=== PATIENT | female | born 1980 | race Two or more races ===

== ENCOUNTER 2024-02-29 10:46 | Emergency (ER) | payer OTHER, SELFPAY ==
[2024-02-29 10:49] VITALS: BP 122/85
[2024-02-29] MEDS: BENADRYL 25 MG IV (12:16)
[2024-02-29] MEDS: NSS 1000 IV (12:16)
[2024-02-29] MEDS: TORADOL 30 MG IV (12:17)
[2024-02-29] MEDS: DECADRON 10 MG IV (12:17)
[2024-02-29] MEDS: REGLAN 10 MG IV (12:17)
[2024-02-29 12:29] LABS: % Basophils 0.5 % (0-2); % Eosinophils 0.9 % (0-6); % Immature Granulocytes 0.4 % (0-0.5); % Lymphocytes 25.2 % (20.5-51.1); % Monocytes 6.7 % (1.7-9.3); % Neutrophils 66.3 % (42.2-75.2); Absolute Basophils 0.1 10^3/uL (0-0.2); Absolute Eosinophils 0.1 10^3/uL (0-0.7); Absolute Lymphocytes 2.8 10^3/uL (1.2-3.4); Absolute Monocytes 0.8 10^3/uL (0.1-0.6); Absolute Neutrophils 7.4 10^3/uL (1.4-6.5); Hematocrit 38.4 % (37.0-47.0); Hemoglobin 12.6 g/dL (12.0-16.0); Mean Corp Hgb Conc. 32.8 g/dL (33.0-37.0); Mean Corpuscular Hgb 26.4 pg (27.0-31.0); Mean Corpuscular Volume 80.3 fL (81.0-99.0); Mean Platelet Volume 10.3 fL (7.4-10.4); Nucleated Red Blood Cells % 0 %; Platelet Count 335 10^3/uL (130-400); Red Blood Cell Count 4.78 10^6/uL (4.20-5.40); Red Cell Dist. Width 12.5 % (11.5-14.5); White Blood Cell Count 11.2 10^3/uL (4.8-10.8)
[2024-02-29 12:36] LABS: HCG, Serum Qualitative Screen Negative
[2024-02-29 12:39] LABS: Blood Urea Nitrogen 8 mg/dl (7-17); Calcium 9.6 mg/dl (8.4-10.2); Carbon Dioxide 31 mmol/L (22-30); Chloride 106 mmol/L (98-107); Glucose 98 mg/dl (70-99); Potassium 4.5 mmol/L (3.5-5.1); Sodium 140 mmol/L (135-145); eGFR > 60.00
--- NOTE | 2024-02-29 13:19 | ED.GENMED ---
History of Present Illness
General
Chief Complaint: Headache
Source: patient
Exam Limitations: none
Time Seen by Provider: 02/29/24 11:32
Nursing documentation reviewed up to this point in time: agreed with
Travel History
Have you had any contact with someone who has COVID-19?: No
Do you have any symptoms of coronavirus? Fever > 100 degrees, chills, cough, shortness of breath, sore throat, loss of taste or smell, muscle aches, or headache?: No
History of Present Illness
History of Present Illness:
33-year-old female with past medical history of migraines presenting to the emergency department today with concerns of migraine ongoing over the past couple days has been going through a lot of stress and thinks this may have triggered it. Has
been taking her sumatriptan without relief. Denies any chest pain shortness of breath nausea vomiting numbness weakness.
Review of Systems
Review of Systems
Allergies reviewed?: Yes
All Other Systems: ROS reviewed and negative except as documented in HPI and ROS
Phy Exam
Physical Exam
Physical Exam:
GENERAL: Alert , in no apparent distress
EYE: pupils equal and reactive
NECK: Supple, no significant adenopathy.
ENT: o/p clr, mmm.
CARDIAC: Regular rate and rhythm .
LUNGS: Clear breath sounds bilaterally, no acute respiratory distress, no wheezes/rales/rhonchi
ABDOMEN: Soft, without focal tenderness, no r/g, no cvat
NEUROLOGICAL: Alert and oriented, no focal neuro deficits 5-5 upper and lower extremity strength normal sensation with palpating bilaterally normal finger-nose and emsw-we-[id number] no pronator drift
SKIN: Warm and dry, skin intact.
MUSCULOSKELETAL: No edema, well perfused.
PSYCH: Normal and appropriate interaction.
Course
Orders/Labs/Results
Orders:
Orders
02/29/24 11:56
0.9% Sodium Chloride 1000 ml [Nss] 1,000 ml IV BOLUS
Dexamethasone Sod Phosphate [Decadron] 10 mg IV NOW STA
Diphenhydramine [Benadryl] 25 mg IV NOW STA
Ketorolac [Toradol] 30 mg IV NOW STA
Metoclopramide [Reglan] 10 mg IV NOW STA
Test Result ONCE
02/29/24 12:16
BMP [Basic Metabolic Panel] Urgent
Beta Hcg Serum Qualitative Screen [HCG, Serum Qualitative Screen] Urgent
CBC/With Diff [Complete Blood Count/With Diff] Urgent
Abnormal Lab Results
02/29/24
12:16
WBC 11.2 H 10^3/uL
(4.8-10.8)
MCV 80.3 L fL
(81.0-99.0)
MCH 26.4 L pg
(27.0-31.0)
MCHC 32.8 L g/dL
(33.0-37.0)
Absolute Neuts (auto) 7.4 H 10^3/uL
(1.4-6.5)
Absolute Monos (auto) 0.8 H 10^3/uL
(0.1-0.6)
Carbon Dioxide 31 H mmol/L
(22-30)
02/29/24 12:16
02/29/24 12:16
Vital Signs
Initial and Last Documented VS:
Initial Vital Signs
Temp Pulse Resp BP Pulse Ox
98.3 F 84 18 122/85 100
02/29/24 10:49 02/29/24 10:49 02/29/24 10:49 02/29/24 10:49 02/29/24 10:49
Last Documented Vital Signs
Temp Pulse Resp BP Pulse Ox
98.3 F 84 18 122/85 100
02/29/24 10:49 02/29/24 10:49 02/29/24 10:49 02/29/24 10:49 02/29/24 10:49
MDM/Problems Addressed
MDM/Problems Addressed:
43-year-old female presenting to the emergency department today with concerns of headache consistent with her migraines. No neurologic symptoms no red flag symptoms. Patient was given a migraine cocktail with full resolution of symptoms.
Otherwise stable for outpatient management return precautions given.
*Critical Care Note
Total Time (30-74mins, 75-104mins- exclusive of procedures): Not Applicable
ED Attending Note
-
Portions of this chart may have been created with voice recognition software.� Occasional wrong word or��sound alike� substitutions may have occurred due to the inherent limitations of voice recognition software.
Discharge Plan
Departure
Patient Disposition: Home (Routine Discharge)
Date of Disposition: 02/29/24
Time of Disposition: 13:22
Patient with high blood pressure during this ER visit?: No
Condition: Good
Covid-19: Not Applicable
Discharge Problem:
Headache
Instructions: Headache, Adult (DC)
Referrals:
Jennifer Morales MD [Family Provider] -
Activity Restrictions/Additional Instructions:
You came to the emergency department today with concerns of a headache. You are given medications with improvement. Please follow-up closely with your outpatient doctor for further management return to the emergency department for any worsening,
new or concerning symptoms.
Interventions
Interventions:
*Risk Screen - Suicide Last Done: 02/29/24 10:49
*General Assessment Last Done: 02/29/24 10:49
*Neglect/Abuse Screening Last Done: 02/29/24 10:49
ED- Fall Risk Assessment Last Done: 02/29/24 11:42
*ED COVID-19 Vaccine History Last Done: 02/29/24 10:49
ED- Neurological Assessment Last Done: 02/29/24 11:42
Discharge Date and Time
Print Language: SINHALA
== END 2024-02-29 14:17 | disposition home or self-care (01) ==
LOC: EMR 10:46
PROVIDERS: Physician Assistant; EMERGENCY PHYSICIAN Emergency Medicine; FAMILY PHYSICIAN Family Medicine
DX: R51.9 Headache, unspecified (principal)
CPT/HCPCS: 99284; 96374; 96375 ×3; 96361; 80048; 84703; 85025